=== PATIENT | female | born 2000 | race Caucasian/White ===

== ENCOUNTER 2024-06-04 22:28 | Emergency (ER) | payer MEDICAID ==
[~2024-06-04] VITALS: Ht 152.4 cm; Wt 97.5 kg
[2024-06-04 22:28] VITALS: BP 140/85; TEMP 98.7; O2SAT 98
[2024-06-04] MEDS ORDERED: IBUPROFEN 600 MG TABLET ONE (23:09)
[2024-06-04] MEDS: IBUPROFEN 600 MG TABLET PO ONE (23:11)
[2024-06-04] MEDS ORDERED: IBUP-1490 PO (23:44)
== END 2024-06-04 23:50 | disposition home or self-care (01) ==
LOC: ER 22:34
DX: S61.307A Unspecified open wound of left little finger with damage to nail, initial encounter (principal); X58.XXXA Exposure to other specified factors, initial encounter; Y93.89 Activity, other specified; Y92.89 Other specified places as the place of occurrence of the external cause; Y99.8 Other external cause status
CPT/HCPCS: 73140-TC